=== PATIENT | female | born 2005 | race Caucasian/White ===

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

== ENCOUNTER 2023-12-05 12:35 | Emergency (ER) | payer MEDICAID ==
[~2023-12-05] VITALS: Ht 170.2 cm; Wt 69.1 kg
[~2023-12-05 12:35] MED LIST changes: -KETO120S3 TOP; +KETO120S5 TOP
[2023-12-05] MEDS ORDERED: DIPH25TA23 PO (14:03)
[2023-12-05] MEDS ORDERED: CLON-478 PO (14:03)
[2023-12-05] MEDS ORDERED: HYDR20OI TOP (14:03)
[2023-12-05] MEDS ORDERED: [UNRECOGNIZED DRUG - CODE] PO (14:03)
[2023-12-05 14:38] LABS: BILIRUBIN,URINE NEGATIVE (Neg); CLARITY,URINE CLEAR (Clear); COLOR,URINE YELLOW (Yellow); GLUCOSE, URINE NEGATIVE (Neg); KETONES,URINE NEGATIVE (Neg); LEUKOCYTE ESTERASE ,URINE NEGATIVE (Neg); NITRITES, URINE NEGATIVE (Neg); OCCULT BLOOD,URINE TRACE-INTACT (Neg); PROTEIN,URINE NEGATIVE (Neg); UROBILINOGEN,URINE 0.2 E.U/dL (0.2-1.0)
[2023-12-05 14:39] LABS: URINE HCG NEGATIVE (NEG)
[2023-12-05 14:39] LABS: BASOPHILS % (AUTO) 0.5 % (0-1); EOSINOPHILS # (AUTO) 0.3 X10'3 (0-0.9); EOSINOPHILS % (AUTO) 3.9 % (0-6); HEMATOCRIT 39.6 % (35.0-45.0); HEMOGLOBIN 12.8 g/dl (12.0-16.0); LYMPHOCYTES # (AUTO) 1.6 X10'3 (1.1-4.8); MEAN CORPUSCULAR HGB CONC 32.4 g/dL (33.0-36.5); MEAN CORPUSCULAR VOLUME 83.1 FL (78-98); MEAN PLATELET VOLUME 8.5 FL (7.4-10.4); MONOCYTES # (AUTO) 0.8 X10'3 (0-0.9); NEUTROPHILS # (AUTO) 4.2 X10'3 (1.8-7.7); NEUTROPHILS % (AUTO) 61.6 % (42-75); PLATELET COUNT 304 X10'3 (140-440); RED BLOOD COUNT 4.76 X10'6 (4.20-5.60); RED CELL DISTRIBUTION WIDTH 18.3 % (11.5-14.5); WHITE BLOOD COUNT 6.8 X10'3 (4.5-11.0)
[2023-12-05 14:45] LABS: BACTERIA,URINE NONE SEEN /HPF (Neg); SQUAMOUS EPITHELIAL CELL,UR FEW /LPF (FEW); UA COLLECTION TYPE NON-SPECIFIED; WBC,URINE 0-4 /HPF (0-4)
[2023-12-05 14:46] LABS: MUCUS STRANDS FEW /LPF (Neg); URINE AMPHETAMINE SCREEN NEGATIVE (Neg); URINE BARBITUATE SCREEN NEGATIVE (Neg); URINE BENZODIAZEPINES SCREEN NEGATIVE (Neg); URINE CANNABINOID SCREEN POSITIVE (Neg); URINE COCAINE SCREEN NEGATIVE (Neg); URINE METHADONE SCREEN NEGATIVE (Neg); URINE OPIATE SCREEN NEGATIVE (Neg); URINE PHENCYCLIDINE SCREEN NEGATIVE (Neg)
[2023-12-05 15:04] LABS: ALBUMIN 4.3 G/DL (3.4-5.0); ANION GAP 7 (8-16); BLOOD UREA NITROGEN 10 MG/DL (7-18); BUN/CREATININE RATIO 13.9 (10.0-20.0); CALCIUM 8.3 MG/DL (8.5-10.1); CHLORIDE 101 MMOL/L (99-107); CREATININE 0.72 MG/DL (0.40-0.90); ETHANOL < 10 MG/DL (<10); GLUCOSE 78 MG/DL (70-104); POTASSIUM 3.2 MMOL/L (3.5-5.1); SALICYLATE 1.2 MG/DL (4.0-20.0); SODIUM 136 MMOL/L (135-145); THYROID STIMULATING HORMONE 0.51 ulU/ml (0.34-4.50); eCRCL 121 ML/MIN; eGFR > 90 ML/MIN
[2023-12-05 15:05] LABS: ACETAMINOPHEN < 2.0 UG/ML (10-30)
[2023-12-05] MEDS ORDERED: hydrocortisone 2.5% 20 gm ointment TP PRN (19:25)
[2023-12-05] MEDS ORDERED: diphenhydrAMINE 25mg capsule PO PRN (19:25)
[2023-12-05] MEDS: CLONIDINE HCL 0.1 MG PO SCH (20:08)
[2023-12-05] MEDS ORDERED: PARO37.510 PO (21:30)
[2023-12-06 06:03] VITALS: BP 108/66; PULSE 77; TEMP 98.1; O2SAT 97
[2023-12-06 06:28] VITALS: RESP 14
== END 2023-12-06 12:28 | disposition home or self-care (01) ==
LOC: ER 12:36
DX: R45.851 Suicidal ideations (principal); Z20.822 Contact with and (suspected) exposure to COVID-19; Z79.899 Other long term (current) drug therapy; Z98.890 Other specified postprocedural states
CPT/HCPCS: 36415; 80048; 80305; 80320; 80329; 81001; 81025; 84443; 85025; 87811; 99285